=== PATIENT | male | born 1985 | race Two or more races ===

== ENCOUNTER 2020-05-17 09:38 | Emergency (ER) | payer SELFPAY ==
--- NOTE | 2020-05-17 10:58 | EDM.PDOC ---
ED HPI GENERAL MEDICAL PROBLEM - General Chief Complaint: Back Pain or Injury Stated Complaint: BACK PAIN Time Seen by Provider: 05/17/20 10:07 Source of Information: Reports: Patient, RN Notes Reviewed - History of Present Illness INITIAL COMMENTS - FREE TEXT/NARRATIVE: 34 yr old male fell or slipped off a scaffold 2 days ago. Wearing a harness so that caught him. Mild pain 2 days ago, worse yesterday and today low mid back. Pain does not radiate to either leg. worse with motion. Treatments CATALOGUE CLERK: Reports: Home Treatments, Other Medication(s) Other Treatments CATALOGUE CLERK: ibuprofen 1000mg Lower Back Pain Score (Numeric/FACES): 8 - Related Data Allergies Allergy/AdvReac Type Severity Reaction Status Date / Time No Known Allergies Allergy Verified 05/17/20 09:50 Home Meds: Home Meds Cyclobenzaprine [Flexeril] 10 mg PO TID PRN #10 tab 05/17/20 [Rx] Naproxen [Naprosyn] 500 mg PO Q12HR #14 tab 05/17/20 [Rx] Past Medical History - Past Health History Medical/Surgical History: Denies Medical/Surgical History Social & Family History - Family History Family Medical History: Noncontributory - Tobacco Use Smoking Status *Q: Never Smoker - Caffeine Use Caffeine Use: Reports: Coffee - Recreational Drug Use Recreational Drug Use: No ED ROS GENERAL - Review of Systems Review Of Systems: See Below Constitutional: Denies: Fever, Chills, Diaphoresis HEENT: Reports: No Symptoms Respiratory: Denies: Shortness of Breath, Cough Cardiovascular: Denies: Chest Pain GI/Abdominal: Denies: Abdominal Pain, Nausea, Vomiting Musculoskeletal: Reports: Back Pain. Denies: Leg Pain Skin: Denies: Rash Neurological: Denies: Numbness, Tingling, Weakness ED EXAM,LOWER BACK PAIN/INJURY - Physical Exam Exam: See Below General Appearance: Alert, No Apparent Distress Respiratory/Chest: No Respiratory Distress, Lungs Clear, Normal Breath Sounds Cardiovascular: Regular Rate, Rhythm GI/Abdominal: Soft, Non-Tender Back Exam: Paraspinal Tenderness, Vertebral Tenderness Neurological: Alert, No Motor/Sensory Deficits Skin Exam: Warm, Dry, Normal Color Course - Vital Signs Last Recorded V/S: Last Vital Signs Temp 98.6 F 05/17/20 09:46 Pulse 72 08/22/20 09:46 Resp 15 05/17/20 09:46 BP 137/81 05/17/20 09:46 Pulse Ox 98 05/17/20 09:46 - Orders/Labs/Meds Orders: Active Orders 24 hr Category Date Time Status Lumbar Spine 2 or 3V [CR] Stat Exams 05/17/20 10:15 Taken - Re-Assessments/Exams Free Text/Narrative Re-Assessment/Exam: 05/17/20 11:10 LS spine X rays nl. Departure - Departure Time of Disposition: 10:55 Disposition: Home, Self-Care 01 Condition: Fair Clinical Impression: Low back strain Qualifiers: Encounter type: initial encounter Qualified Code(s): S39.012A - Strain of muscle, fascia and tendon of lower back, initial encounter - Discharge Information Prescriptions: Cyclobenzaprine [Flexeril] 10 mg PO TID PRN #10 tab PRN Reason: Pain Naproxen [Naprosyn] 500 mg PO Q12HR #14 tab Instructions: Lumbar Sprain Referrals: PCP,None [Primary Care Provider] - Forms: ED Department Discharge Additional Instructions: Try avoid heavy lifting until pain resolving. Alternate ice and heat as needed. Naprosyn 500 mg twice daily for pain and inflamation. Tyelenol or jose taminophen 100 mg in between doses up to 3 times daily for extra pain relief as needed. Flexeril 10 q 8 to 12 for muscle relaxation as needed. Prescriptions have been sent to [facility] at the [facility]. Sepsis Event Note (ED) - Evaluation Sepsis Screening Result: No Definite Risk - Focused Exam Vital Signs: Vital Signs Temp Pulse Resp BP Pulse Ox 05/17/20 09:46 98.6 F 72 15 137/81 98 - My Orders Last 24 Hours: My Active Orders 05/17/20 10:15 Lumbar Spine 2 or 3V [CR] Stat - Assessment/Plan Last 24 Hours: My Active Orders 05/17/20 10:15 Lumbar Spine 2 or 3V [CR] Stat
--- NOTE | 2020-05-17 11:42 | CR ---
Lumbar spine: AP and lateral views of the lumbar spine were obtained. Comparison: No previous study. Vertebral body heights and disc spaces are maintained. Pedicles are intact. Visualized transverse and spinous processes are intact. Sacroiliac joints are normal. Impression: 1. Nothing acute is seen on 2 view lumbar spine study. Diagnostic code #1 This report was dictated in MDT
== END 2020-05-17 11:13 | disposition home or self-care (01) ==
LOC: JD.ED 09:38
DX: S39.012A Strain of muscle, fascia and tendon of lower back, initial encounter (principal); W12.XXXA Fall on and from scaffolding, initial encounter
CPT/HCPCS: 72100; 72100-26; 99283